=== PATIENT | female | born 1980 | race Caucasian/White ===

== ENCOUNTER 2018-01-18 21:15 | Emergency (ER) | payer OTHER ==
[~2018-01-18] VITALS: Ht 160 cm; Wt 44.5 kg
[~2018-01-18 21:15] MED LIST: CALC500C3 PO; LEVO125T5 PO; PREN-115 PO
[2018-01-18 21:20] VITALS: TEMP 36.9; Ht 160 cm; Wt 44.5 kg
[2018-01-18] MEDS ORDERED: ONDANSETRON INJ 2 MG/ML 2 ML VIAL IV STA (22:22)
[2018-01-18] MEDS ORDERED: MoRPHine SULFATE 4 MG/ML 1 ML CARP\\VIAL IV STA (22:22)
[2018-01-18] MEDS ORDERED: AMPICILLIN/SULBACTAM SOD INJ 3,000 MG in SODIUM CHLORIDE 0.9% 100ML 100 ML IV STA (22:22)
[2018-01-18] MEDS ORDERED: SODIUM CHLORIDE 0.9% 1000ML 1,000 ML IV ONE (22:30)
[2018-01-18 22:37] LABS: BASO % 0.3 %; BASO ABS # 0.04 K/uL (0-0.2); EOS % 0.6 %; EOS ABS # 0.09 K/uL (0-0.5); HEMATOCRIT 32.4 % (37-47); HEMOGLOBIN 10.8 g/dL (12.0-16.0); IG# 0.06 K/uL (0.00-0.02); LYMPH % 12.6 %; LYMPH ABS # 1.91 K/uL (1.2-3.4); MEAN CORPUSCULAR HEMOGLOBIN 31.7 pg (25-34); MEAN CORPUSCULAR HGB CONC 33.3 g/dl (32-36); MEAN PLATELET VOLUME 8.4 fL (7.4-10.4); MONO % 13.8 %; MONO ABS # 2.09 K/uL (0.11-0.59); NEUT % 72.3 %; NEUT ABS # 10.92 K/uL (1.4-6.5); PLATELET COUNT 555 K/uL (130-400); RED CELL DISTRIBUTION WIDTH CV 14.9 % (11.5-14.5); RED CELL DISTRIBUTION WIDTH SD 51.7 fL (36.4-46.3); WHITE BLOOD COUNT 15.11 K/uL (4.8-10.8)
[2018-01-18] MEDS ORDERED: SYN137 PO (22:45)
[2018-01-18] MEDS ORDERED: ARIP1TAB14 PO (22:45)
[2018-01-18] MEDS ORDERED: OPTIRAY 320 IV PRN (22:45)
[2018-01-18 22:57] LABS: ALBUMIN 3.7 gm/dl (3.4-5.0); CALCIUM 8.7 mg/dl (8.5-10.1); CREATININE 0.64 mg/dl (0.60-1.20); POTASSIUM 3.5 mmol/L (3.5-5.1); TOTAL PROTEIN 8.8 gm/dl (6.4-8.2)
[2018-01-19] MEDS ORDERED: MoRPHine SULFATE 4 MG/ML 1 ML CARP\\VIAL IV STA (00:07)
[2018-01-19] MEDS ORDERED: KETOROLAC TROMETHAMINE 15 MG/ML VIAL IV ONE (00:15)
[2018-01-19] MEDS ORDERED: AMOXICIL/CLAVU 875MG HOME PACK PO ONE (00:45)
[2018-01-19] MEDS ORDERED: OXYCODONE IR HOME PACK PO ONE (00:45)
[2018-01-19] MEDS ORDERED: OXYC-737 PO (00:47)
[2018-01-19] MEDS ORDERED: AMOX875T PO (00:47)
[2018-01-19 01:05] VITALS: BP 91/53; PULSE 73; O2SAT 96
--- NOTE | 2018-01-19 06:54 | DIAGNOSTIC IMAGING REPORT ---
CT OF THE NECK WITH CONTRAST CLINICAL HISTORY: Right facial swelling. Poor dentition. COMPARISON STUDY: No previous studies for comparison. TECHNIQUE: Axial images of the neck were obtained following intravenous injection of 92 cc Optiray 320 IV. FINDINGS: Visualized portions of the intracranial contents are unremarkable. A small amount of fluid within the right mastoid air cells is noted. There is mild polypoid mucosal thickening of the sinuses. There is slight asymmetric enhancement of the right parotid gland. Note is made of a periapical lucency of the right second maxillary molar. There is an adjacent 0.8 x 0.5 cm rim-enhancing fluid collection consistent with an abscess shown on image 132 of 381. There is a cavity/absent crown of this tooth. Mild infiltration within the adjacent soft tissues reflect cellulitis. The airway is patent. Epiglottis is normal. Prominent right cervical lymph nodes are likely reactive. Note is made of scattered irregular opacities within visualized portions of the lungs which are partially imaged on this exam. IMPRESSION: 1. Periapical lucency of the right second maxillary molar with adjacent 0.8 cm abscess. Mild adjacent infiltration suggests cellulitis. Cavity/absent crown of this tooth. 2. Mild airspace opacities within visualized portions of the lungs which favors a mild infectious process. Electronically signed by: Carrillo Garcia M.D. 01/19/2018 6:53 AM Dictated Date/Time: 01/19/2018 6:46 AM
--- NOTE | 2018-01-19 23:38 | EMERGENCY ROOM VISIT NOTE ---
History First contact with patient: 22:12 Chief Complaint: DENTAL PAIN Stated Complaint: RIGHT SIDE OF FACE SWOLLEN;TOOTH PAIN Nursing Triage Summary: Pt ambulates to room. Reports tooth pain started 2-3 days ago. Reports the swelling started this AM. Has not seen a dentist. History of Present Illness The patient is a 37 year old female who presents to the Emergency Room with complaints of right upper dental pain that began 2 or 3 days ago. Patient states that she has had difficulty sleeping the past few nights because of the pain. She has been using Orajel and Tylenol with only minimal improvement of symptoms. Patient does have a dentist appointment scheduled for next week. The patient presents to the ER tonight because she has developed right-sided facial swelling over the past 12 hours. She has not had fever or chills. No difficulty breathing. She does not feel swelling in her neck or under her tongue. She rates her current discomfort a 9/10. Review of Systems More than 10 systems were reviewed and otherwise negative with the exception of history of present illness. Past Medical/Surgical History Medical Problems: (1) Missed (2) Tobacco Use Disorder Family History No pertinent family history Social History Smoking Status: Current Every Day Smoker Alcohol Use: none Marital Status: Housing Status: lives with family Occupation Status: unemployed Current/Historical Medications Scheduled Amoxicillin & Pot Clavulanate (Augmentin 875-125 mg), 1 TAB PO BID Aripiprazole (Aripiprazole), 5 MG PO DAILY Levothyroxine Sodium (Levothyroxine Sodium), 137 MCG PO DAILY Oxycodone Immediate Rel Tab (Roxicodone Ir), 1-2 TAB PO Q6 Physical Exam Vital Signs Date Time Temp Pulse Resp B/P (MAP) Pulse Ox O2 Delivery O2 Flow Rate FiO2 01/19/18 01:05 73 91/53 96 01/18/18 23:28 68 15 104/62 96 Room Air 01/18/18 21:20 36.9 86 18 104/68 96 Room Air Physical Exam VITALS: Vitals are noted on the nurse's note and reviewed by myself. Vital signs stable. GENERAL: Well-developed, well-nourished, white female who appears in moderate discomfort HEAD: There is notable right-sided facial swelling compared to the left. No obvious abscess is appreciated on exam EARS: External ear normal. External auditory canals clear, tympanic membranes pearly bryson without erythema or effusion bilaterally. EYES: Pupils equal round and reactive to light and accommodation. Conjunctivae without injection, sclerae without icterus. Extraocular movements intact. NOSE: Patent, turbinates without inflammation or discharge. MOUTH: Mucous membranes moist. Tonsils are not enlarged. Pharynx without erythema, blood, or exudate. Uvula midline. Airway patent. No soft palate edema. No tenderness underneath the tongue. The dentition is overall poor. The right upper first molar, #1 tooth, is significantly deteriorated and carious with erythema of the gumline in this area. No obvious abscess is noted in the mouth NECK: Supple without nuchal rigidity. Cervical spine is nontender. HEART: Regular rate and rhythm without murmurs gallops or rubs. LUNGS: Clear to auscultation bilaterally without wheezes, rales or rhonchi. No retractions or accessory muscle use. Medical Decision & Procedures ER Provider Diagnostic Interpretation: CT OF THE NECK WITH CONTRAST CLINICAL HISTORY: Right facial swelling. Poor dentition. COMPARISON STUDY: No previous studies for comparison. TECHNIQUE: Axial images of the neck were obtained following intravenous injection of 92 cc Optiray 320 IV. FINDINGS: Visualized portions of the intracranial contents are unremarkable. A small amount of fluid within the right mastoid air cells is noted. There is mild polypoid mucosal thickening of the sinuses. There is slight asymmetric enhancement of the right parotid gland. Note is made of a periapical lucency of the right second maxillary molar. There is an adjacent 0.8 x 0.5 cm rim-enhancing fluid collection consistent with an abscess shown on image 132 of 381. There is a cavity/absent crown of this tooth. Mild infiltration within the adjacent soft tissues reflect cellulitis. The airway is patent. Epiglottis is normal. Prominent right cervical lymph nodes are likely reactive. Note is made of scattered irregular opacities within visualized portions of the lungs which are partially imaged on this exam. IMPRESSION: 1. Periapical lucency of the right second maxillary molar with adjacent 0.8 cm abscess. Mild adjacent infiltration suggests cellulitis. Cavity/absent crown of this tooth. 2. Mild airspace opacities within visualized portions of the lungs which favors a mild infectious process. Laboratory Results 01/18/18 22:25 Red Blood Count 3.41, Mean Corpuscular Volume 95.0, Mean Corpuscular Hemoglobin 31.7, Mean Corpuscular Hemoglobin Concent 33.3, Mean Platelet Volume 8.4, Neutrophils (%) (Auto) 72.3, Lymphocytes (%) (Auto) 12.6, Monocytes (%) (Auto) 13.8, Eosinophils (%) (Auto) 0.6, Basophils (%) (Auto) 0.3, Neutrophils # (Auto ) 10.92, Lymphocytes # (Auto) 1.91, Monocytes # (Auto) 2.09, Eosinophils # (Auto ) 0.09, Basophils # (Auto) 0.04 01/18/18 22:25 Test 01/18/18 22:25 White Blood Count 15.11 K/uL (4.8-10.8) Red Blood Count 3.41 M/uL (4.2-5.4) Hemoglobin 10.8 g/dL (12.0-16.0) Hematocrit 32.4 % (37-47) Mean Corpuscular Volume 95.0 fL (80-100) Mean Corpuscular Hemoglobin 31.7 pg (25-34) Mean Corpuscular Hemoglobin Concent 33.3 g/dl (32-36) Platelet Count 555 K/uL (130-400) Mean Platelet Volume 8.4 fL (7.4-10.4) Neutrophils (%) (Auto) 72.3 % Lymphocytes (%) (Auto) 12.6 % Monocytes (%) (Auto) 13.8 % Eosinophils (%) (Auto) 0.6 % Basophils (%) (Auto) 0.3 % Neutrophils # (Auto) 10.92 K/uL (1.4-6.5) Lymphocytes # (Auto) 1.91 K/uL (1.2-3.4) Monocytes # (Auto) 2.09 K/uL (0.11-0.59) Eosinophils # (Auto) 0.09 K/uL (0-0.5) Basophils # (Auto) 0.04 K/uL (0-0.2) RDW Standard Deviation 51.7 fL (36.4-46.3) RDW Coefficient of Variation 14.9 % (11.5-14.5) Immature Granulocyte % (Auto) 0.4 % Immature Granulocyte # (Auto) 0.06 K/uL (0.00-0.02) Anion Gap 5.0 mmol/L (3-11) Est Creatinine Clear Calc Drug Dose 86.2 ml/min Estimated GFR () 134.0 Estimated GFR (Non- 115.6 BUN/Creatinine Ratio 6.4 (10-20) Calcium Level 8.7 mg/dl (8.5-10.1) Total Bilirubin 0.5 mg/dl (0.2-1) Aspartate Amino Transf (AST/SGOT) 5 U/L (15-37) Alanine Aminotransferase (ALT/SGPT) 9 U/L (12-78) Alkaline Phosphatase 90 U/L (45-117) Total Protein 8.8 gm/dl (6.4-8.2) Albumin 3.7 gm/dl (3.4-5.0) Globulin 5.1 gm/dl (2.5-4.0) Albumin/Globulin Ratio 0.7 (0.9-2) Medications Administered Medications (Trade) Dose Ordered Sig/Park Route Start Time Stop Time Status Last Admin Dose Admin Ampicillin Sodium/ Sulbactam Sodium 3000 mg/Sodium Chloride 108 ml @ 200 mls/hr NOW STAT IV 01/18/18 22:22 01/18/18 22:54 DC 01/18/18 23:27 200 MLS/HR Morphine Sulfate (MoRPHine SULFATE INJ) 4 mg NOW STAT IV 01/18/18 22:22 01/18/18 22:25 DC 01/18/18 22:34 4 MG Ondansetron HCl (Zofran Inj) 4 mg NOW STAT IV 01/18/18 22:22 01/18/18 22:25 DC 01/18/18 22:33 4 MG Sodium Chloride 1,000 ml @ 999 mls/hr Q1H1M ONCE IV 01/18/18 22:30 01/18/18 23:30 DC 01/18/18 22:36 999 MLS/HR Morphine Sulfate (MoRPHine SULFATE INJ) 4 mg NOW STAT IV 01/19/18 00:07 01/19/18 00:08 DC 01/19/18 00:20 4 MG Ketorolac Tromethamine (Toradol Inj) 15 mg NOW ONCE IV 01/19/18 00:15 01/19/18 00:16 DC 01/19/18 00:19 15 MG ED Course Physical exam and history were performed. Nursing notes, EMR, and Medication List were personally reviewed. Patient appears to have right-sided facial swelling with what appears to be a dental infection. She relates that she has a very strong desire to go home tonight as she has multiple children but need attended to. IV access was established and labs were obtained. The patient was given Unasyn here in the department. CT scan of the neck was performed. The patient's blood work is as above and was reviewed. She does have an elevated white blood cell count of greater than 15,000. Her CT scan appears to show a small abscess, which was my primary concern. On reevaluation the patient did feel better with some pain medication. I discussed options of care with the patient, and offered admission to the facility for continued IV antibiotics. 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 The patient will be given a course of Augmentin and pain medication. She evidently does have a dentist appointment next week and needs to keep this appointment. I did have a lengthy discussion with her regarding the importance of returning to the ER if she has any worsening of her symptoms at all. She voiced understanding of this and was comfortable with discharge home. The chart was completed utilizing [employer] Voice Recognition Software. Grammatical errors, random word insertions, pronoun errors, and incomplete sentences are an occasional consequence of this system due to software limitations, ambient noise, and hardware issues. Any formal questions or concerns about the content, text, or information contained within the body of this dictation should be directly addressed to the provider for clarification. . Medical Decision Differential diagnosis: Etiologies such as cellulitis, abscess, MRSA infection, DVT, necrotizing fasciitis, dermatitis, drug eruption, as well as others were entertained. Impression Primary Impression: Dental abscess Departure Information Dispostion Home / Self-Care Condition GOOD Prescriptions Oxycodone Immediate Rel Tab (ROXICODONE IR) 5 Mg Tab 1-2 TAB PO Q6, #15 TAB Initial treatment Prov: Armand Grant PA-C 01/19/18 Amoxicillin & Pot Clavulanate (Augmentin 875-125 mg) 1 Tab Tab 1 TAB PO BID for 9 Days, #18 TAB Prov: Armand Grant PA-C 01/19/18 Forms HOME CARE DOCUMENTATION FORM, IMPORTANT VISIT INFORMATION Patient Instructions [facility] Additional Instructions You were seen and evaluated today on an emergency basis only. This is not a substitute for, or an effort to provide, complete comprehensive medical care. It is not possible to recognize and treat all injuries or illnesses in a single emergency department visit. For this reason it is recommended that you followup with your dentist as scheduled for ongoing care and evaluation. For baseline pain relief you may alternate ibuprofen and acetaminophen every 4 hours for pain control. Take 600 mg ibuprofen (Advil) and then 4 hours later take 1000 mg acetaminophen (Tylenol). Do not take more than 3000 mg acetaminophen in a single day. Oxycodone (OxyIR) 5mg: Take ONE or TWO pills by mouth every SIX hours for breakthrough pain. Avoid alcohol, operating machinery or dangerous equipment, working on ladders or roofs, DRIVING, or situations where being under the influence may be dangerous. It is recommended to use an [id number] stool softener such as Colace, 100mg twice daily while taking this medication to avoid constipation. Amoxicillin Clavulanate (Augmentin) 875mg: Take one pill twice daily for 10 days for your infection. All antibiotics can cause diarrhea. If this occurs and you feel worse or it does not resolve in 1-2 days follow up with your doctor or return to the Emergency Department as this could be signs of serious underlying problems. Any medication can cause an allergic reaction, stop the pills immediately and return to the ER for rash, hives, breathing difficulties, or swelling. You are welcome to return to the emergency department anytime with new, worsening, or concerning symptoms.
== END 2018-01-19 01:05 | disposition home or self-care (01) ==
LOC: C.EDB 21:17 → C.EDC 01-19 01:05
DX: K04.7 Periapical abscess without sinus (principal); F17.200 Nicotine dependence, unspecified, uncomplicated; Z79.899 Other long term (current) drug therapy